=== PATIENT | male | born 1955 | race Caucasian/White ===

== ENCOUNTER 2018-04-28 06:51 | Day surgery (SDC) | payer OTHER ==
[2018-04-14 17:10] VITALS: BMI 25.0
[2018-04-28] MEDS ORDERED: LIDOCAINE HCL 2% (20ML MULTI-DOSE VIAL) NR ONE (07:09)
[2018-04-28] MEDS ORDERED: SODIUM BICARBONATE 8.4% 50 MEQ/50 ML VIAL ONE (07:41)
[2018-04-28] MEDS ORDERED: LIDOCAINE 1%/EPI 1:100000 (20 ML MULTI DOSE VIAL) ONE (07:41)
[2018-04-28] MEDS ORDERED: BUPIVACAINE HCL 0.25% 125 MG/50 ML VIAL ONE (07:43)
[2018-04-28] MEDS ORDERED: ceFAZolin SODIUM 1 GM VIAL IVPB ONE ×2 (07:55→08:55)
[2018-04-28] MEDS ORDERED: ceFAZolin SODIUM 1 GM VIAL ONE (07:55)
[2018-04-28 10:13] VITALS: TEMP 98.1
[2018-04-28 11:29] VITALS: BP 122/72; PULSE 66
--- NOTE | 2018-05-03 12:25 | OP ---
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 OPERATIVE PROCEDURE: Left small finger distal interphalangeal joint arthrodesis with autograft. SURGEON: Luiz Salmeron MD TRAY PACKER: NIURKA Griffin ANESTHESIA: Local. COMPLICATIONS: None. ESTIMATED BLOOD LOSS: Minimal. INDICATIONS FOR PROCEDURE: The patient is a 62-year-old male with the above finding indicated for operative theater. Risks, benefits, and alternatives were discussed with the patient at length. Proper informed consent was obtained. DESCRIPTION OF PROCEDURE: After proper identification of the patient and correct operative site, the patient was brought to the operating room and placed supine on the table with prominences well padded. Local anesthesia was given with lidocaine with epinephrine as well as Marcaine. This provided satisfactory anesthetic for the procedure. IV antibiotics were also given prior to the procedure. The left upper extremity was prepped and draped in the usual sterile fashion. Finger tourniquet was used. Dorsal incision was made over the distal interphalangeal joint. The incision was taken sharply through the skin with blunt and sharp dissection to subcutaneous tissues. Extensor mechanism was divided, and the collateral ligaments were partially excised and released. The joint was shocked and then found to be severely arthritic. Bone spurs were removed. Articular bone was removed down to healthy bleeding cancellous bone. The joint was then reduced into satisfactory position with a small amount of flexion as requested by the patient. [employer] headless cannulated screws were then used. A 2.0-mm size was selected. A guidewire was placed across the joint, and radiographs were taken to confirm positioning. The guidewire was then replaced with a screw after reaming. The provided excellent articular compression and excellent alignment of the finger. Bone graft from the drill threads were used to pack into the arthrodesis space. Final x-rays taken confirming proper placement and size of all hardware as well as the arthrodesis positioning. The wound was repaired with a 5-0 fast-absorbing plain gut suture. Sterile dressings and a splint were placed. The patient was reversed from anesthesia and brought to the recovery room in stable condition. NIURKA Griffin, the virtual office assistant, was integral throughout the procedure. The procedure could not have been performed without a skilled operative virtual office assistant Hayder [id number]
== END 2018-04-28 11:00 | disposition home or self-care (01) ==
LOC: FASU 06:51
PROVIDERS: ATTEND Orthopaedic Surgery Hand Surgery
PROC: 0RGX07Z Fusion of Left Finger Phalangeal Joint with Autologous Tissue Substitute, Open Approach (ICD-10-PCS; principal; 2018-04-28 08:30)
DX: M19.042 Primary osteoarthritis, left hand (principal)
CPT/HCPCS: 73130-TC-LT-FY

== ENCOUNTER 2020-06-20 07:46 | Day surgery (SDC) | payer OTHER, MEDICARE ==
[2020-06-19 09:45] VITALS: BMI 25.0
[2020-06-20 08:16] VITALS: TEMP 98
[2020-06-20] MEDS ORDERED: LIDOCAINE HCL/PF 2% SDV 5ML VIAL ONE (08:18)
[2020-06-20] MEDS ORDERED: PROPOFOL 20 ML ONE ×2 (08:18)
[2020-06-20 09:33] VITALS: PULSE 78
[2020-06-20 09:36] VITALS: BP 114/67
== END 2020-06-20 09:45 | disposition home or self-care (01) ==
LOC: FASU-ENDO 07:46
PROVIDERS: ATTEND Internal Medicine Gastroenterology
PROC: 0DJD8ZZ Inspection of Lower Intestinal Tract, Via Natural or Artificial Opening Endoscopic (ICD-10-PCS; principal; 2020-06-20)
DX: Z12.11 Encounter for screening for malignant neoplasm of colon (principal)